=== PATIENT | male | born 1985 | race Caucasian/White ===

== ENCOUNTER 2016-08-06 04:28 | Emergency (ER) | payer OTHER ==
[2016-08-06 04:48] VITALS: BP 148/97; PULSE 90; TEMP 98.1; BMI 27.1
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
[2016-08-06] MEDS ORDERED: IBUPROFEN 400 MG TABLET (FP) PO ONE (05:37)
[2016-08-06] MEDS ORDERED: OXYCODONE/APAP 5/325MG COMBO TABLET PO ONE (05:37)
== END 2016-08-06 05:44 | disposition home or self-care (01) ==
LOC: JER 04:28 → SUPCPDRO 04:28 → JER 05:44
DX: S49.81XA Other specified injuries of right shoulder and upper arm, initial encounter (principal); Y35.811A Legal intervention involving manhandling, law enforcement official injured, initial encounter; Y93.89 Activity, other specified; Y92.59 Other trade areas as the place of occurrence of the external cause; Y99.0 Civilian activity done for income or pay
CPT/HCPCS: 73030-TC-RT; 99281-25

== ENCOUNTER 2017-07-19 05:01 | Emergency (ER) | payer OTHER ==
[2017-07-19 05:15] VITALS: BP 142/89; PULSE 62; TEMP 98.6; BMI 27.1
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
[2017-07-19] MEDS ORDERED: IBUPROFEN 400 MG TABLET (FP) PO ONE ×2 (06:04→06:07)
== END 2017-07-19 06:08 | disposition home or self-care (01) ==
LOC: JER 05:01
DX: S49.91XA Unspecified injury of right shoulder and upper arm, initial encounter (principal); Y35.891A Legal intervention involving other specified means, law enforcement official injured, initial encounter; Y93.89 Activity, other specified; Y92.9 Unspecified place or not applicable; Y99.0 Civilian activity done for income or pay
CPT/HCPCS: 99281-25